=== PATIENT | female | born 1950 | race Two or more races ===

== ENCOUNTER 2025-04-22 06:19 | Inpatient (IN) | payer OTHER ==
[~2025-04-22] VITALS: Ht 152.4 cm; Wt 72.6 kg
[2025-04-22 07:00] VITALS: BP_SYST 112; BP_SYST 115; BP_DIAS 63; BP_DIAS 75; TEMP 97.3; TEMP 97.5; O2SAT 94
[2025-04-22] MEDS ORDERED: LIDOCAINE 2%-EPI 1:100,000 30 ML VIAL ONE (07:06)
[2025-04-22] MEDS ORDERED: ANESTHESIA TRAY IN PYXIS 1 EA TRAY MC ONE (07:06)
[2025-04-22] MEDS ORDERED: dexaMETHasone SOD PHOSPHATE 2 ML ONE (07:06)
[2025-04-22] MEDS ORDERED: VANCOMYCIN 1 GM VIAL ONE (07:07)
[2025-04-22] MEDS ORDERED: FENTANYL PF 250MCG/5ML AMPUL ONE (07:19)
[2025-04-22] MEDS ORDERED: ROCURONIUM BROMIDE 50 MG/5 ML ONE (07:21)
[2025-04-22] MEDS ORDERED: LABETALOL HCL IV 100MG VIAL ONE (09:04)
[2025-04-22] MEDS ORDERED: ONDANSETRON HCL/PF 4 MG/2 ML VIAL IV PRN (11:00)
[2025-04-22 11:24] VITALS: BP 118/68; TEMP 97.5
[2025-04-22] MEDS ORDERED: ONDANSETRON HCL/PF 4 MG/2 ML VIAL IVP PRN (12:00)
[2025-04-22] MEDS ORDERED: MAG HYDROX/AL HYDROX/SIMETH 30 ML UDC PO PRN (12:00)
[2025-04-22] MEDS ORDERED: ACETAMINOPHEN 325 MG TABLET PO PRN (12:00)
[2025-04-22] MEDS ORDERED: HYDROMORPHONE INJ 2 MG/ML DISP.SYRIN IV PRN (12:00)
[2025-04-22] MEDS ORDERED: Z GUARD REMEDY 4 OZ OINT TP PRN (12:00)
[2025-04-22] MEDS ORDERED: MAGNESIUM HYDROXIDE 30 ML UDC PO PRN (12:00)
[2025-04-22] MEDS ORDERED: ZOLPIDEM TARTRATE 5 MG TABLET PO PRN (12:00)
[2025-04-22] MEDS: IV NS 0.9% 1,000 ML IV PRN (15:09)
[2025-04-22 16:00] VITALS: BP 138/73; TEMP 98.2; O2SAT 94
[2025-04-22] MEDS: VANCOMYCIN 1 GM in IV D5W 250ml IV SCH (17:54)
[2025-04-22 21:27] VITALS: BP 131/70; TEMP 98.1; O2SAT 94
[2025-04-22 21:38] VITALS: BP 131/70; TEMP 98.1; O2SAT 94
[2025-04-23 08:00] VITALS: BP 129/60; TEMP 97.7; O2SAT 93
[2025-04-23 08:16] LABS: BASOPHILS # (AUTO) 0.1 K/uL (0.0-0.2); BASOPHILS % (AUTO) 0.9 % (0.0-2.0); HEMATOCRIT 36 % (33-45); HEMOGLOBIN 11.6 g/dL (11.5-14.8); LYMPHOCYTES # (AUTO) 2.1 K/uL (0.8-4.8); LYMPHOCYTES % (AUTO) 14.1 % (20.0-44.0); MEAN CORPUSCULAR HEMOGLOBIN 28 PG (26.0-33.0); MEAN CORPUSCULAR HGB CONC 32 g/dl (31.0-36.0); MEAN CORPUSCULAR VOLUME 87 fL (82-100); MONOCYTES % (AUTO) 6.9 % (2.0-12.0); NEUTROPHILS # (AUTO) 11.4 K/uL (1.8-8.9); NEUTROPHILS % (AUTO) 78.1 % (43.0-81.0); PLATELET COUNT (AUTO) 354 K/uL (150-450); RED BLOOD CELL COUNT(AUTO) 4.13 MIL/uL (4.0-5.2); RED CELL DISTRIBUTION WIDTH 14.8 % (11.5-15.0); WHITE BLOOD COUNT (AUTO) 14.6 K/uL (4.3-11.0)
[2025-04-23 08:27] LABS: CALCIUM, SERUM 8.6 mg/dL (8.5-10.1); CREATININE 0.8 mg/dL (0.6-1.3); MAGNESIUM 2.3 mg/dL (1.8-2.4); PHOSPHORUS 3.6 mg/dL (2.5-4.9); POTASSIUM 3.9 mmol/L (3.5-5.1)
[2025-04-23] MEDS: ACETAMINOPHEN 325 MG TABLET PO PRN (12:05)
== END 2025-04-23 12:00 | disposition home or self-care (01) | DRG 142 ==
LOC: SURGERY 06:19 → MED 10:29
PROVIDERS: ADMIT Student in an Organized Health Care Education/Training Program; ATTEND Student in an Organized Health Care Education/Training Program
PROC: 0NSR04Z Reposition Maxilla with Internal Fixation Device, Open Approach (ICD-10-PCS; principal; 2025-04-22 07:30)
PROC: 0N5T0ZZ Destruction of Right Mandible, Open Approach (ICD-10-PCS; principal; 2025-04-22 07:30)
PROC: 0NUV07Z Supplement Left Mandible with Autologous Tissue Substitute, Open Approach (ICD-10-PCS; principal; 2025-04-22 07:30)
PROC: 0N5V0ZZ Destruction of Left Mandible, Open Approach (ICD-10-PCS; principal; 2025-04-22 07:30)
PROC: 0NUT07Z Supplement Right Mandible with Autologous Tissue Substitute, Open Approach (ICD-10-PCS; principal; 2025-04-22 07:30)
PROC: 0NSV0ZZ Reposition Left Mandible, Open Approach (ICD-10-PCS; principal; 2025-04-22 07:30)
PROC: 09UR07Z Supplement Left Maxillary Sinus with Autologous Tissue Substitute, Open Approach (ICD-10-PCS; principal; 2025-04-22 07:30)
PROC: 0NUR07Z Supplement Maxilla with Autologous Tissue Substitute, Open Approach (ICD-10-PCS; principal; 2025-04-22 07:30)
PROC: 0NST04Z Reposition Right Mandible with Internal Fixation Device, Open Approach (ICD-10-PCS; principal; 2025-04-22 07:30)
PROC: 0N5R0ZZ Destruction of Maxilla, Open Approach (ICD-10-PCS; principal; 2025-04-22 07:30)
DX: S02.40DA Maxillary fracture, left side, initial encounter for closed fracture (principal); M27.40 Unspecified cyst of jaw; S02.40CA Maxillary fracture, right side, initial encounter for closed fracture; S02.609A Fracture of mandible, unspecified, initial encounter for closed fracture; D16.5 Benign neoplasm of lower jaw bone; M27.2 Inflammatory conditions of jaws; X58.XXXA Exposure to other specified factors, initial encounter; Y92.9 Unspecified place or not applicable; D16.4 Benign neoplasm of bones of skull and face; D72.829 Elevated white blood cell count, unspecified; J32.0 Chronic maxillary sinusitis
CPT/HCPCS: 36415; 80048-TC; 83735-TC; 84100-TC; 85025-TC; A4223; A4338; C1713; G0378; J0461; J1100; J2704; J3010; J3370; J3490; J7030; J7060

== ENCOUNTER 2025-10-21 06:12 | Inpatient (IN) | payer OTHER ==
[~2025-10-21] VITALS: Ht 167.6 cm; Wt 97.1 kg
[2025-10-21] MEDS ORDERED: ANESTHESIA TRAY IN PYXIS 1 EA TRAY MC ONE (07:00)
[2025-10-21] MEDS ORDERED: VANCOMYCIN 1 GM VIAL ONE (07:01)
[2025-10-21] MEDS ORDERED: dexaMETHasone SOD PHOSPHATE 1 ML ONE ×2 (07:01→07:36)
[2025-10-21] MEDS ORDERED: LIDOCAINE 2%-EPI 1:100,000 30 ML VIAL ONE (07:01)
[2025-10-21 07:02] VITALS: BP 135/65; TEMP 98.8; O2SAT 96
[2025-10-21] MEDS ORDERED: FENTANYL PF 100MCG/2ML AMPUL ONE (07:33)
[2025-10-21] MEDS ORDERED: MIDAZOLAM HCL 2 MG/2ML VIAL ONE (07:34)
[2025-10-21] MEDS ORDERED: MAG HYDROX/AL HYDROX/SIMETH 30 ML UDC PO PRN (10:30)
[2025-10-21] MEDS ORDERED: HYDROCODONE/APAP 5/325MG TABLET PO PRN (10:30)
[2025-10-21] MEDS ORDERED: HYDROMORPHONE 1 MG/1 ML DISP.SYRIN IV PRN (10:30)
[2025-10-21] MEDS ORDERED: ACETAMINOPHEN 325 MG TABLET PO PRN ×2 (10:30)
[2025-10-21] MEDS ORDERED: ONDANSETRON HCL/PF 4 MG/2 ML VIAL IVP PRN (10:30)
[2025-10-21] MEDS ORDERED: MAGNESIUM HYDROXIDE 30 ML UDC PO PRN (10:30)
[2025-10-21] MEDS ORDERED: ONDANSETRON HCL/PF 4 MG/2 ML VIAL IV PRN (10:30)
[2025-10-21] MEDS ORDERED: Z GUARD REMEDY 4 OZ OINT TP PRN (10:30)
[2025-10-21 11:05] VITALS: BP 116/62; TEMP 98; O2SAT 96
[2025-10-21] MEDS: IV NS 0.9% 1,000 ML IV PRN (14:11)
[2025-10-21 16:00] VITALS: BP 124/70; TEMP 97.3; O2SAT 92
[2025-10-21] MEDS: VANCOMYCIN 1 GM in IV D5W 250ml IV SCH (18:04)
[2025-10-21 20:00] VITALS: BP 122/59; TEMP 98.1; O2SAT 95
[2025-10-22 07:02] LABS: PLATELET COUNT (AUTO) 317 K/uL (150-450); RED BLOOD CELL COUNT(AUTO) 4.07 MIL/uL (4.0-5.2); RED CELL DISTRIBUTION WIDTH 14.3 % (11.5-15.0); WHITE BLOOD COUNT (AUTO) 10.6 K/uL (4.3-11.0)
[2025-10-22 07:19] LABS: CALCIUM, SERUM 8.4 mg/dL (8.5-10.1); CREATININE 0.8 mg/dL (0.6-1.3); PHOSPHORUS 3.6 mg/dL (2.5-4.9); SODIUM SERUM 141.0 mmol/L (136-145); UREA NITROGEN, BLOOD 16.0 mg/dL (7-18)
[2025-10-22 10:39] VITALS: BP 120/72; TEMP 98.1; O2SAT 94
== END 2025-10-22 12:15 | disposition home or self-care (01) | DRG 908 ==
LOC: DS 06:12 → MED 06:14
PROVIDERS: ADMIT Nurse Practitioner Acute Care; ATTEND Nurse Practitioner Acute Care
PROC: 0N5R0ZZ Destruction of Maxilla, Open Approach (ICD-10-PCS; 2025-10-21)
PROC: 0NPW04Z Removal of Internal Fixation Device from Facial Bone, Open Approach (ICD-10-PCS; 2025-10-21)
PROC: 0NSR04Z Reposition Maxilla with Internal Fixation Device, Open Approach (ICD-10-PCS; 2025-10-21)
PROC: 0NPW07Z Removal of Autologous Tissue Substitute from Facial Bone, Open Approach (ICD-10-PCS; 2025-10-21)
PROC: 0NUR07Z Supplement Maxilla with Autologous Tissue Substitute, Open Approach (ICD-10-PCS; 2025-10-21)
PROC: 0N5V0ZZ Destruction of Left Mandible, Open Approach (ICD-10-PCS; 2025-10-21)
PROC: 0N5T0ZZ Destruction of Right Mandible, Open Approach (ICD-10-PCS; 2025-10-21)
PROC: 0NUV07Z Supplement Left Mandible with Autologous Tissue Substitute, Open Approach (ICD-10-PCS; 2025-10-21)
PROC: 0NUT07Z Supplement Right Mandible with Autologous Tissue Substitute, Open Approach (ICD-10-PCS; 2025-10-21)
PROC: 0NSV04Z Reposition Left Mandible with Internal Fixation Device, Open Approach (ICD-10-PCS; 2025-10-21)
PROC: 0NST04Z Reposition Right Mandible with Internal Fixation Device, Open Approach (ICD-10-PCS; 2025-10-21)
PROC: 09UR07Z Supplement Left Maxillary Sinus with Autologous Tissue Substitute, Open Approach (ICD-10-PCS; principal; 2025-10-21 07:30)
DX: T86.831 Bone graft failure (principal); M87.9 Osteonecrosis, unspecified; T84.69XA Infection and inflammatory reaction due to internal fixation device of other site, initial encounter; E66.9 Obesity, unspecified; S02.40CK Maxillary fracture, right side, subsequent encounter for fracture with nonunion; S02.40DK Maxillary fracture, left side, subsequent encounter for fracture with nonunion; S02.609K Fracture of mandible, unspecified, subsequent encounter for fracture with nonunion; D16.4 Benign neoplasm of bones of skull and face; X58.XXXD Exposure to other specified factors, subsequent encounter; Y83.8 Other surgical procedures as the cause of abnormal reaction of the patient, or of later complication, without mention of misadventure at the time of the procedure; Y92.009 Unspecified place in unspecified non-institutional (private) residence as the place of occurrence of the external cause; X58.XXXA Exposure to other specified factors, initial encounter; Y92.9 Unspecified place or not applicable; D16.5 Benign neoplasm of lower jaw bone; Z68.34 Body mass index [BMI] 34.0-34.9, adult; F17.200 Nicotine dependence, unspecified, uncomplicated; M89.38 Hypertrophy of bone, other site
CPT/HCPCS: 36415; 80048-TC; 83735-TC; 84100-TC; 85025-TC; 87081-TC; 88300-TC; 88305-TC; 88311-TC; A4217; A4338; C1713; G0378; J0330; J0690; J1100; J1885; J2250; J2405; J2704; J2765; J3010; J3373; J3490; J7030; J7060